=== PATIENT | male | born 1970 | race Caucasian/White ===

== ENCOUNTER 2022-12-30 10:52 | Outpatient (AMB) | payer OTHER, SELFPAY ==
[2022-12-30 11:30] VITALS: BMI 26.3
--- NOTE | 2022-12-30 11:30 | A.OFFVIS_ITS ---
Intake VS Expanded 12/30/22 11:30 12/30/22 11:36 Height 6 ft 6 ft Weight 193 lb 12.581 oz 194 lb BMI 26.3 26.3 Intake Visit Reasons: DM/Confirmed HPI Nutrition Presentation Details Pt presents for MNT for T2DM. Pt was referred by ZAYRA Wray from [facility]. Pt reports having good appetite. He reports having had information regarding healthy plate method to help with glucose management. Pt is interested in learning regarding macronutrients. Pt is accompanied by daughter. Pt did not bring glucometer to this appt. He reports taking metformin 2000mg /day food frequency fruits: 1-2/d vegetables 4 serving/d starches > 30 serving protein foods 9-15 serving/d dairy: 3-4 /d Physical activity : walking daily /30 min or more smoking 5/day [facility]-E[facility].Jeor Equation Height 6 ft Weight 194 lb Resting Metabolic Rate 1771.25 Calculated Activity Level Mild Activity Calories Needed to Maintain Weight 2435.47 Diagnosis Nutrition problem #1 food nutri know defi As related to (etiology) #1 diagnosis As evidenced by (sign/symptom) #1 food recall Monitoring/Goals Nutrition problem monitoring total CHO intake Nutrition goal/outcome HgbA1c <7% in 3 months Learning/Education Readiness to learn good Stages of change action Educational materials provided Yes (meal planning) Most Recent Diabetes Results: No Data to Display Assessment & Plan Assessment & Plan (1) T2DM (type 2 diabetes mellitus): Code(s): E11.9 - Type 2 diabetes mellitus without complications Plan: wt: 88 kg Est kcal needs as per MSJ: 2400 (40% carb, 30% protein/fat) Est fluid needs as per 30 ml/d: 2600 Est prot per day as per 1 g/kg bw: 88 Recommend fiber intake : 8-10 g per day and gradually increase to 25-28 g per day for women and 35-38 g for men or as tolerated Recommend sodium intake per day : less than 2000 mg Educated patient on: ( R = reviewed V = verbalizes understanding N/R = needs review N/A = not applicable * Food sources of carbohydrate, adequate serving sizes and its role in various health conditions: R , V * Differences between complex carbohydrates a simple carbohydrates, role of fiber in diet: R V * Differences between types of fats and role in diet (mono on saturated fat fatty acids, saturated fatty acids, trans fats): R V * Food sources of sodium in salt and healthy modifications for heart health in kidney health: R V * Vitamins and minerals: R V * Healthy plate method concept: R V * Physical activity: Benefits a precaution: R V * Hypoglycemia protocol (rule of 15): R V * Dietary prevention of Hyperglycemia: R V Patient Instructions: Work on following healthy plate method, distribute your total carbohydrate throughout the day including higher fiber sources of carb Work at maintaining total carb at around 80 g at meal time following healthy plate method Coding Level of Care Code Nutr Indiv Intake (85867) Diagnoses T2DM (type 2 diabetes mellitus) E11.9 Time Spent (min) 30
[2023-01-04 09:23] VITALS: BMI 26.3
== END 2022-12-30 12:02 | disposition home or self-care (01) ==
PROVIDERS: PCP Internal Medicine; Visit Provider Dietitian, Registered
DX: E11.9 Type 2 diabetes mellitus without complications (principal)

== ENCOUNTER → 2022-12-30 10:52 | Outpatient (BNVA) | payer OTHER, SELFPAY | PROVIDERS: PCP Internal Medicine; Visit Provider Dietitian, Registered | DX: E11.9 Type 2 diabetes mellitus without complications (principal); Z71.3 Dietary counseling and surveillance | CPT/HCPCS: 97802 ==